=== PATIENT | male | born 1970 | race Caucasian/White ===

== ENCOUNTER 2018-04-22 03:38 | Emergency (ER) | payer BC ==
[2018-04-22] MEDS ORDERED: ASPIRIN 81 MG PO STA (03:48)
[2018-04-22 04:16] VITALS: RESP 16
[2018-04-22 04:30] LABS: Basophils % (A) 1 %; Eosinophils # (A) 0.1 k/uL (0-0.7); Eosinophils % (A) 2 %; HCT 42.8 % (39.0-53.0); HGB 15.1 gm/dL (13.0-17.5); Lymphocytes # (A) 1.4 k/uL (1.0-4.8); Lymphocytes % (A) 23 %; MCH 30.2 pg (25.0-35.0); MCHC 35.3 g/dL (31.0-37.0); MCV 85.4 fL (80.0-100.0); Mean Platelet Volume 7.9; Monocytes # (A) 0.4 k/uL (0-1.0); Monocytes % (A) 7 %; Neutrophils # (A) 4.1 k/uL (1.3-7.7); Neutrophils % (A) 65 %; Platelet Count 268 k/uL (150-450); RBC 5.01 m/uL (4.30-5.90); RDW 12.7 % (11.5-15.5); WBC 6.3 k/uL (3.8-10.6)
[2018-04-22 04:43] LABS: INR 1.1 (<1.2); Partial Thromboplastin Time 26.5 sec (22.0-30.0)
[2018-04-22 04:54] LABS: ALT 44 U/L (21-72); AST 33 U/L (17-59); Albumin 4.3 g/dL (3.5-5.0); Alkaline Phosphatase 55 U/L (38-126); Anion Gap 9 mmol/L; Blood Urea Nitrogen 14 mg/dL (9-20); Calcium 9.5 mg/dL (8.4-10.2); Carbon Dioxide 25 mmol/L (22-30); Chloride 104 mmol/L (98-107); Glucose 95 mg/dL (74-99); Magnesium 2.1 mg/dL (1.6-2.3); Potassium 4.3 mmol/L (3.5-5.1); Sodium 138 mmol/L (137-145); Total Bilirubin 0.7 mg/dL (0.2-1.3); Total Protein 6.6 g/dL (6.3-8.2)
--- NOTE | 2018-04-22 05:03 | XR ---
EXAMINATION TYPE: XR chest 1V portable DATE OF EXAM: 04/22/2018 COMPARISON: NONE HISTORY: Chest pain TECHNIQUE: Single frontal view of the chest is obtained. FINDINGS: Heart and mediastinum are normal. Lungs are clear. Diaphragm is normal. Bony thorax is int act. There are chest leads. IMPRESSION: Normal chest
[2018-04-22 05:19] LABS: Creatine Kinase MB 1.6 ng/mL (0.0-2.4); Troponin I 0.029 ng/mL (0.000-0.034)
--- NOTE | 2018-04-22 05:26 | CT ---
EXAMINATION TYPE: CT cervical spine wo con DATE OF EXAM: 04/22/2018 COMPARISON: None HISTORY: LEFT SIDED NECK PAIN CT DLP: 555.2 mGycm Automated exposure control for dose reduction was used. TECHNIQUE: CT scan of the cervical spine is obtained without contrast, axial images are obtained, sa gittal and coronal reformatted images are also reviewed. FINDINGS: The cervical vertebra have fairly normal spacing and alignment. Skull base appears intact. Posterior elements appear intact. There is minimal hypertrophic facet arthropathy. I see no bony dest ructive process. Prevertebral soft tissues appear normal. There is small posterior disc herniation at C5-6 on the left side encroaching on the neural foramen. IMPRESSION: Left-sided C5-6 mild posterior disc herniation. This could be clinically significant in t his patient with left-sided pain..
[2018-04-22] MEDS ORDERED: methylPREDNISolone SOD SUCCI 125 MG/2 ML VIAL IV STA (05:57)
--- NOTE | 2018-04-22 06:36 | ED ---
Neuro HPI - General Chief Complaint: Neuro Symptoms/Deficit Stated Complaint: Numbness Lt Shoulder Time Seen by Provider: 04/22/18 03:47 Source: patient Mode of arrival: ambulatory Limitations: no limitations - History of Present Illness Is the patient presenting with stroke symptoms?: No Onset/Timin -: days(s) Initial Comments: This patient is a 47-year-old man who presents to be evaluated for left shoulder /arm numbness and tingling. Patient states that the symptoms have been going on for approximately 2 days. He states that he had awakened morning with symptoms and he felt that it may be related to how he slept on his shoulder. He indicates the trapezius muscles and deltoid area. The patient states that he does see a chiropractor due to chronic neck issues. The patient states there is only some minimal pain is more concerned about the tingling or numbness. He denies weakness. The patient states that he has also seen Dr. Spencer previously about neck issues. Location: left arm History of same: No Place: home Severity: moderate Quality: numb, tingling Improves With: none Worsens With: none On Anticoagulants: No Context: gradual onset Associated Symptoms: denies other symptoms Treatments Prior to Arrival: none - Related Data Home Medications: Previous Rx's Medication Instructions Recorded predniSONE 60 mg PO DAILY #30 tab 04/22/18 Allergies/Adverse Reactions: Allergies Allergy/AdvReac Type Severity Reaction Status Date / Time No Known Allergies Allergy Verified 04/22/18 03:46 Review of Systems ROS Statement: Those systems with pertinent positive or pertinent negative responses have been documented in the HPI. ROS Other: All systems not noted in ROS Statement are negative. Constitutional: Denies: fever, chills, weakness Respiratory: Denies: cough, dyspnea Cardiovascular: Denies: chest pain, palpitations, dyspnea on exertion, syncope Gastrointestinal: Denies: abdominal pain, nausea, vomiting Musculoskeletal: Denies: back pain Skin: Denies: rash, lesions Neurological: Reports: numbness, paresthesias. Denies: headache, weakness General Exam Limitations: no limitations General appearance: alert, in no apparent distress Head exam: Present: atraumatic, normocephalic Eye exam: Present: normal appearance. Absent: scleral icterus, conjunctival injection ENT exam: Present: normal oropharynx Neck exam: Present: normal inspection, full ROM. Absent: tenderness, meningismus Respiratory exam: Present: normal lung sounds bilaterally. Absent: respiratory distress, wheezes, rales, rhonchi, stridor Cardiovascular Exam: Present: regular rate, normal rhythm, normal heart sounds. Absent: systolic murmur, diastolic murmur, rubs, gallop GI/Abdominal exam: Present: soft. Absent: distended, tenderness, guarding, rebound, rigid Extremities exam: Present: normal inspection, normal capillary refill. Absent: pedal edema, calf tenderness Back exam: Present: normal inspection. Absent: CVA tenderness (R), CVA tenderness (L) Neurological exam: Present: alert, oriented X3, CN II-XII intact, motor sensory deficit (There is mild sensory deficit to light touch at the lateral aspect of the deltoid muscle. Strength is symmetric and normal throughout the upper extremity.) Skin exam: Present: warm, dry, intact, normal color. Absent: rash Stroke MDM - Lab Data Result diagrams: 04/22/18 04:10 04/22/18 04:10 Lab Results 04/22/18 04/22/18 04/22/18 Range/Units 04:10 04:10 04:10 WBC 6.3 (3.8-10.6) k/uL RBC 5.01 (4.30-5.90) m/uL Hgb 15.1 (13.0-17.5) gm/dL Hct 42.8 (39.0-53.0) % MCV 85.4 (80.0-100.0) fL MCH 30.2 (25.0-35.0) pg MCHC 35.3 (31.0-37.0) g/dL RDW 12.7 (11.5-15.5) % Plt Count 268 (150-450) k/uL Neutrophils % 65 % Lymphocytes % 23 % Monocytes % 7 % Eosinophils % 2 % Basophils % 1 % Neutrophils # 4.1 (1.3-7.7) k/uL Lymphocytes # 1.4 (1.0-4.8) k/uL Monocytes # 0.4 (0-1.0) k/uL Eosinophils # 0.1 (0-0.7) k/uL Basophils # 0.0 (0-0.2) k/uL PT (9.0-12.0) sec INR (<1.2) APTT (22.0-30.0) sec Sodium 138 (137-145) mmol/L Potassium 4.3 (3.5-5.1) mmol/L Chloride 104 (98-107) mmol/L Carbon Dioxide 25 (22-30) mmol/L Anion Gap 9 mmol/L BUN 14 (9-20) mg/dL Creatinine 1.00 (0.66-1.25) mg/dL Est GFR (CKD-EPI)AfAm >90 (>60 ml/min/1.73 sqM) Est GFR (CKD-EPI)NonAf 89 (>60 ml/min/1.73 sqM) Glucose 95 (74-99) mg/dL Calcium 9.5 (8.4-10.2) mg/dL Magnesium 2.1 (1.6-2.3) mg/dL Total Bilirubin 0.7 (0.2-1.3) mg/dL AST 33 (17-59) U/L ALT 44 (21-72) U/L Alkaline Phosphatase 55 (38-126) U/L Total Creatine Kinase 255 H (55-170) U/L CK-MB (CK-2) 1.6 (0.0-2.4) ng/mL CK-MB (CK-2) Rel Index 0.6 Troponin I 0.029 (0.000-0.034) ng/mL Total Protein 6.6 (6.3-8.2) g/dL Albumin 4.3 (3.5-5.0) g/dL 04/22/18 Range/Units 04:10 WBC (3.8-10.6) k/uL RBC (4.30-5.90) m/uL Hgb (13.0-17.5) gm/dL Hct (39.0-53.0) % MCV (80.0-100.0) fL MCH (25.0-35.0) pg MCHC (31.0-37.0) g/dL RDW (11.5-15.5) % Plt Count (150-450) k/uL Neutrophils % % Lymphocytes % % Monocytes % % Eosinophils % % Basophils % % Neutrophils # (1.3-7.7) k/uL Lymphocytes # (1.0-4.8) k/uL Monocytes # (0-1.0) k/uL Eosinophils # (0-0.7) k/uL Basophils # (0-0.2) k/uL PT 11.0 (9.0-12.0) sec INR 1.1 (<1.2) APTT 26.5 (22.0-30.0) sec Sodium (137-145) mmol/L Potassium (3.5-5.1) mmol/L Chloride (98-107) mmol/L Carbon Dioxide (22-30) mmol/L Anion Gap mmol/L BUN (9-20) mg/dL Creatinine (0.66-1.25) mg/dL Est GFR (CKD-EPI)AfAm (>60 ml/min/1.73 sqM) Est GFR (CKD-EPI)NonAf (>60 ml/min/1.73 sqM) Glucose (74-99) mg/dL Calcium (8.4-10.2) mg/dL Magnesium (1.6-2.3) mg/dL Total Bilirubin (0.2-1.3) mg/dL AST (17-59) U/L ALT (21-72) U/L Alkaline Phosphatase (38-126) U/L Total Creatine Kinase (55-170) U/L CK-MB (CK-2) (0.0-2.4) ng/mL CK-MB (CK-2) Rel Index Troponin I (0.000-0.034) ng/mL Total Protein (6.3-8.2) g/dL Albumin (3.5-5.0) g/dL - Medical Decision Making Patient is a 47-year-old man presenting with symptoms strongly suggestive of cervical radiculopathy. CT does show what appears to be disc herniation at C5 6. He does not have any evidence of cardiac source of the symptoms. The patient does not have any motor deficit and states that his pain is under control, declining analgesia here. We did start steroids and the patient is feeling better and would like to follow with Dr. Spencer. I discussed signs and symptoms requiring immediate return for MRI, and the patient will continue steroids and follow with his physician. - EKG Data -: EKG Interpreted by Me EKG shows normal: sinus rhythm, axis (Normal), intervals (QRS duration at upper limit normal.), QRS complexes (Normal), ST-T waves (Normal) Rate: bradycardia (Rate approximately 59 bpm) Past Medical History Past Medical History: Hyperlipidemia History of Any Multi-Drug Resistant Organisms: None Reported Past Surgical History: Adenoidectomy, Orthopedic Surgery, Tonsillectomy Additional Past Surgical History / Comment(s): right carpal tunnel release, bilateral knee Past Psychological History: No Psychological Hx Reported Smoking Status: Former smoker Past Alcohol Use History: Occasional Past Drug Use History: None Reported Course Vital Signs 04/22/18 04/22/18 04/22/18 03:42 04:10 06:47 Temperature 97.5 F L 98.2 F Pulse Rate 65 60 66 Respiratory 18 16 16 Rate Blood Pressure 137/85 133/78 113/70 O2 Sat by Pulse 100 98 97 Oximetry Disposition Clinical Impression: Cervical radiculopathy at C6 Disposition: HOME SELF-CARE Condition: Fair Prescriptions: predniSONE 60 mg PO DAILY #30 tab Is patient prescribed a controlled substance at d/c from ED?: No Referrals: Christo Fleming MD [Primary Care Provider] - 1-2 days Tahira Spencer DO [Doctor of Osteopathic Medicine] - 1-2 days
[2018-04-22 06:49] VITALS: BP 113/70; PULSE 66; TEMP 98.2
== END 2018-04-22 06:45 | disposition home or self-care (01) ==
LOC: EC 03:38
DX: M54.12 Radiculopathy, cervical region (principal); Z87.891 Personal history of nicotine dependence
CPT/HCPCS: 36415; 93005; 80053; 82550; 82553; 83735; 84484; 85025; 85610; 85730; 71045; 72125; 99284; 96374; J2930

== ENCOUNTER → 2025-04-21 | Outpatient (CLI) | payer BC ==
--- NOTE | 2025-04-22 07:47 | MR ---
EXAMINATION TYPE: MR brain/cspine wo DATE OF EXAM: 04/21/2025 9:21 PM COMPARISON: CT. CLINICAL INDICATION: Male, 54 years old with history of R20.0, R29.2; PHH, right facial numbness, Hof fman's reflex positive, and neck pain and bilateral arm/hand numbness mostly left hand. TECHNIQUE: Multi planar, multi sequence imaging was performed through the brain including: T1, T2, Inversion rec overy, Diffusion weighted imaging, and gradient echo imaging. No gadolinium was given. Multi planar, multi sequence imaging was performed utilizing: T1-weighted, T2-weighted, and turbo inv ersion recovery imaging of the cervical spine. IV Contrast: mL none FINDINGS: The jerome-white junctions, ventricular system, basal cisterns appear unremarkable. Scattered foci of high T2 signal intensity are seen within the periventricular white matter. Midline structures show n o abnormality. Diffusion-weighted imaging shows no evidence of restricted diffusion. The susceptibili ty weighted images do not reveal any evidence for micro-hemorrhage. The bone marrow signal is within normal limits. Paranasal sinuses and mastoid air cells: No significant paranasal sinus disease. Visualized orbits: Orbital contents are intact. Alignment: The cervical vertebral bodies have preserved heights. Alignment is within normal limits gi eddi patient positioning. Bones: Scattered Modic endplate changes with osteophytes and disc space narrowing. Multilevel degener ative disc disease is noted and most pronounced at the C5-C7 vertebral levels. Cord: The spinal cord is unremarkable with regards to their signal intensity and morphology. Discs: Multilevel disc desiccation is present. C2-C3: No significant disc pathology. The spinal canal is patent. No neural foraminal stenosis. C3-C4: No significant disc pathology. The spinal canal is patent. No neural foraminal stenosis. C4-C5: No significant disc pathology. The spinal canal is patent. Bilateral facet and uncovertebral joint arthropathy are present with mild right neural foraminal stenosis. The left neural foramen is p atent. C5-C6: No significant disc pathology. The spinal canal is patent. Bilateral facet and uncovertebral joint arthropathy are present with moderate bilateral neural foraminal stenosis. C6-C7: No significant disc pathology. The spinal canal is patent. Bilateral facet and uncovertebral joint arthropathy are present with mild to moderate right and severe left neural foraminal stenosis. C7-T1: No significant disc pathology. The spinal canal is patent. No neural foraminal stenosis. Other: None. IMPRESSION: 1. No evidence for disc herniation or significant spinal canal stenosis. 2. Mild disc degeneration with associated osteoarthritic changes. 3. No foraminal stenosis worse at C5-C6 bilaterally with moderate bilateral neural foraminal stenosi s and severe C6-C7 left no foraminal stenosis. 4. No evidence of intracranial mass or acute/subacute infarct. 5. Nonspecific white matter changes, likely secondary to small vessel ischemic disease. [facility], , 04/22/2025 7:44 AM
== END | disposition home or self-care (01) ==
LOC: RADMRIMAIN 20:30
PROVIDERS: ATTEND Orthopaedic Surgery Orthopaedic Surgery of the Spine
DX: M50.323 Other cervical disc degeneration at C6-C7 level (principal); R29.2 Abnormal reflex; R20.0 Anesthesia of skin; R90.82 White matter disease, unspecified
CPT/HCPCS: 70551; 72141